=== PATIENT | male | born 1965 | race Caucasian/White ===

== ENCOUNTER 2018-01-06 11:44 | Emergency (ER) | payer OTHER ==
[~2018-01-06] VITALS: Ht 175.3 cm; Wt 111.7 kg
[~2018-01-06 11:44] MED LIST: AMLO5 PO; CEPH500 PO; CHOL10002 PO; FAMO20 PO; FOLI1 PO; FURO40 PO; GABA300 PO; GABA800 PO; GLIP10ER; GLIP10ER PO; HYDACE10B PO; HYDR1TAB94 PO; Hydrocodone-Ap1 EA20 PO; LISI20 PO; METO50 PO; MULVITMIND PO; NAPR500 PO; Nicoderm Cq1 EAC1 TD; PANT40 PO; POTCHL20ER PO; PRAV20 PO; PROM25 PO; QUET300 PO; RANI150 PO; TAMS.4ER PO; THIA100 PO; TRAM50 PO; TRAZ100 PO; TRIHYD253A PO; WARF5 PO
[2018-01-06] MEDS ORDERED: Bactrim Ds Tab1 EACH PO (14:40)
[2018-01-06] MEDS ORDERED: Ultram50 MG PO (14:40)
[2018-01-06] MEDS ORDERED: Keflex500 MG PO (14:40)
== END 2018-01-06 15:16 | disposition home or self-care (01) ==
LOC: ER 11:44
DX: L02.413 Cutaneous abscess of right upper limb (principal); I82.611 Acute embolism and thrombosis of superficial veins of right upper extremity; K21.9 Gastro-esophageal reflux disease without esophagitis; I10 Essential (primary) hypertension; E11.9 Type 2 diabetes mellitus without complications; E78.5 Hyperlipidemia, unspecified; F17.210 Nicotine dependence, cigarettes, uncomplicated; Z79.899 Other long term (current) drug therapy; Z79.84 Long term (current) use of oral hypoglycemic drugs; Z79.1 Long term (current) use of non-steroidal anti-inflammatories (NSAID)
CPT/HCPCS: 10061; 87070; 87075; 87077; 87147; 87186; 87205; 93971; 99284; J1885